=== PATIENT | male | born 1980 | race Caucasian/White ===

== ENCOUNTER 2024-06-26 20:32 | Emergency (ER) | payer OTHER ==
[~2024-06-26] VITALS: Ht 172.7 cm; Wt 85.3 kg
[2024-06-26 20:48] VITALS: TEMP 98.4
[2024-06-26] MEDS: SODIUM CHLORIDE 0.9% 1000ML 1,000 ML IV STA (21:06)
[2024-06-26] MEDS: METHYLPREDNISOLONE SOD SUCC 125 MG/2ML VIAL IV STA (21:07)
[2024-06-26] MEDS: METOCLOPRAMIDE HCL 10 MG/2ML VIAL IV STA (21:11)
[2024-06-26] MEDS: DIPHENHYDRAMINE HCL INJ 50 MG/ML VIAL IV STA (21:11)
[2024-06-26 21:18] LABS: BASOPHILS % 0.3 % (0.0-1.0); EOSINOPHILS % 0.3 % (0.0-6.0); HEMATOCRIT 48.4 % (38.2-49.6); HEMOGLOBIN 16.2 g/dL (14.0-18.0); LYMPHOCYTES # (AUTO) 1.3 (1.0-3.2); LYMPHOCYTES % 11.2 % (18.0-39.1); MEAN CORPUSCULAR HEMOGLOBIN 29.5 pg (28-32); MEAN CORPUSCULAR HGB CONC 33.5 g/dL (31-35); MONOCYTES # (AUTO) 0.9 (0.2-0.8); NEUTROPHILS # (AUTO) 9.3 (2.1-6.9); PLATELET COUNT 183 x10e3/uL (140-360); WHITE BLOOD COUNT 11.74 x10e3/uL (4.8-10.8)
[2024-06-26 21:32] LABS: ALBUMIN 4.2 g/dL (3.5-5.0); ALBUMIN/GLOBULIN RATIO 1.3 (0.8-2.0); ANION GAP 14.8 mmol/L (8-16); BILIRUBIN,TOTAL 0.7 mg/dL (0.2-1.2); CALCIUM 9.8 mg/dL (8.4-10.2); CREATININE, SERUM 1.05 mg/dL (0.72-1.25); POTASSIUM 4.8 mmol/L (3.5-5.1); TOTAL PROTEIN 7.5 g/dL (6.5-8.1)
[2024-06-26] MEDS: ACETAMIN/BUTALBITAL/CAFFEINE TAB PO ONE (21:35)
[2024-06-26] MEDS ORDERED: IOPAMIDOL 370 MG/ML 100 ML INFUS..BTL INJ ONE (21:44)
[2024-06-26] MEDS ORDERED: ONDANSETRON HCL INJ 2MG/ML 2ML 2 MG/ML VIAL ONE (21:49)
[2024-06-26] MEDS: ONDANSETRON HCL INJ 2MG/ML 2ML 2 MG/ML VIAL IV STA (21:58)
[2024-06-27 00:22] VITALS: PULSE 76; RESP 16; O2SAT 96
[2024-06-27] MEDS ORDERED: FIORICET 50-301 EACH PO (00:46)
== END 2024-06-27 00:51 | disposition home or self-care (01) ==
LOC: ER 20:39
DX: R51.9 Headache, unspecified (principal); R20.2 Paresthesia of skin; Z85.841 Personal history of malignant neoplasm of brain
CPT/HCPCS: 36415; 70450; 80053; 85025; 99284; J2405; J2919; J7030; Q9967; J1200; J2765